=== PATIENT | male | born 1960 | race Caucasian/White ===

== ENCOUNTER 2024-04-09 08:17 | Outpatient (CLI) | payer BC | END 2024-04-09 08:18 | disposition home or self-care (01) | LOC: CSHWCC 08:17 | PROVIDERS: ATTEND Nurse Practitioner Family | DX: S61.401D Unspecified open wound of right hand, subsequent encounter (principal); T81.31XD Disruption of external operation (surgical) wound, not elsewhere classified, subsequent encounter | CPT/HCPCS: 11043; 99213; G0463 ==

== ENCOUNTER 2024-04-16 09:45 | Outpatient (CLI) | payer BC | END 2024-04-16 09:46 | disposition home or self-care (01) | LOC: CSHWCC 09:45 | PROVIDERS: ATTEND Nurse Practitioner Family | DX: S61.401D Unspecified open wound of right hand, subsequent encounter (principal); T81.31XD Disruption of external operation (surgical) wound, not elsewhere classified, subsequent encounter | CPT/HCPCS: 99213; G0463 ==

== ENCOUNTER 2024-04-23 08:44 | Outpatient (CLI) | payer BC | END 2024-04-23 08:45 | disposition home or self-care (01) | LOC: CSHWCC 08:44 | PROVIDERS: ATTEND Nurse Practitioner Family | DX: T81.31XD Disruption of external operation (surgical) wound, not elsewhere classified, subsequent encounter (principal); S61.401D Unspecified open wound of right hand, subsequent encounter; M86.141 Other acute osteomyelitis, right hand | CPT/HCPCS: 99212; G0463 ==

== ENCOUNTER 2024-04-30 08:50 | Outpatient (CLI) | payer BC | END 2024-04-30 08:51 | disposition home or self-care (01) | LOC: CSHWCC 08:50 | PROVIDERS: ATTEND Nurse Practitioner Family | DX: S61.401D Unspecified open wound of right hand, subsequent encounter (principal); T81.31XD Disruption of external operation (surgical) wound, not elsewhere classified, subsequent encounter; M86.141 Other acute osteomyelitis, right hand | CPT/HCPCS: 11042 ==

== ENCOUNTER 2024-05-07 09:01 | Outpatient (CLI) | payer BC | END 2024-05-07 09:02 | disposition home or self-care (01) | LOC: CSHWCC 09:01 | PROVIDERS: ATTEND Nurse Practitioner Family | DX: T81.31XD Disruption of external operation (surgical) wound, not elsewhere classified, subsequent encounter (principal); S61.401D Unspecified open wound of right hand, subsequent encounter; M86.141 Other acute osteomyelitis, right hand | CPT/HCPCS: 99212; G0463 ==

== ENCOUNTER 2024-05-21 15:36 | Outpatient (CLI) | payer BC | END 2024-05-21 15:37 | disposition home or self-care (01) | LOC: CSHWCC 15:36 | PROVIDERS: ATTEND Family Medicine | DX: Z09 Encounter for follow-up examination after completed treatment for conditions other than malignant neoplasm (principal); Z87.828 Personal history of other (healed) physical injury and trauma | CPT/HCPCS: 99212; G0463 ==